=== PATIENT | male | born 1960 | race Caucasian/White ===

== ENCOUNTER 2024-01-12 15:52 | Observation (INO) | payer OTHER ==
[2024-01-12 16:33] LABS: #Basophils Less than 0.03 10x3/uL (0.0-0.2); %Basophils 0.2 % (0.0-1.0); %Eosinophils 0.7 % (0.0-10.0); %Lymphocytes 13.1 % (21.0-51.0); %Monocytes 7.6 % (0.0-10.0); Hematocrit 40.2 % (42.0-52.0); Hemoglobin 14.4 g/dL (14.0-18.0); Mean Corpuscular HGB CONC 35.8 g/dL (32.0-36.0); Mean Corpuscular Hemoglobin 36.7 pg (27.0-31.0); Mean Corpuscular Volume 102.6 fL (78.0-98.0); Mean Platelet Volume 9.3 fL (7.4-10.4); Platelet Count 205 10x3/uL (130-400); Red Blood Cell (RBC) Count 3.92 mill/uL (4.70-6.10)
[2024-01-12 16:53] LABS: ALT (SGPT) 15 U/L (8-55); AST (SGOT) 35 U/L (5-34); Albumin 3.9 g/dL (3.4-4.8); Alkaline Phosphatase 80 U/L (40-110); Anion Gap 22 mmol/L (10-20); BUN (Urea Nitrogen) 6 mg/dL (8.4-25.7); Bilirubin, Total 0.6 mg/dL (0.2-1.2); Calc. Creatinine Clearance 0 mL/min (70-130); Calcium 8.4 mg/dL (7.8-10.44); Carbon Dioxide 16 mmol/L (23-31); Chloride 102 mmol/L (98-107); Estimated GFR 97; Globulin 2.7 g/dL (2.4-3.5); Glucose 76 mg/dL (80-115); Potassium 3.6 mmol/L (3.5-5.1); Protein, Total 6.6 g/dL (5.8-8.1); Sodium 136 mmol/L (136-145)
[2024-01-12 16:57] LABS: Troponin I Less than 0.010 ng/mL (< 0.028)
[2024-01-12 17:20] LABS: Actual Bicarbonate (HCO3v) 17.6 mEq/L (22-28); Analyzer IN Cardio ER; Base Excess -6.5 mEq/L (-2.0 to +3.0); Calcium, Ionized (venous) 1.06 mmol/L (1.16-1.32); Chloride (VBG) 104 mmol/L (98-106); Hematocrit-VBG 45 % (42.0-52.0); Hemoglobin (Hb) 15.2 g/dL (13.1-17.2); Potassium (VBG) 3.54 mmol/L (3.70-5.30); Sodium 135 mmol/L (133-146); pH (venous) 7.362 (7.32-7.43)
[2024-01-12 17:39] LABS: CK (CPK) 437 U/L (30-200); Magnesium 2.2 mg/dL (1.6-2.6)
[2024-01-12 18:48] LABS: Bacteria/HPF None Seen HPF (None Seen); Bilirubin Negative (Negative); Blood, Urine 1+ (Negative); CAUTI Indications for Culture Immunosuppressed; Clarity Clear (Clear); Glucose, Urine (Dipstick) Normal (Negative); Ketone, Urine Negative (Negative); Leukocyte Negative Leu/uL (Negative); Nitrite Negative (Negative); Protein, Urine (Dipstick) Negative (Neg-Trace); RBC/HPF None Seen HPF (0-3); Squamous Epithelial None Seen HPF (0-3); Urobilinogen Normal mg/dL (Less than 2); WBC/HPF None Seen HPF (0-3)
[2024-01-12 18:50] LABS: Specific Gravity, Urine 1.003 (1.002-1.036)
[2024-01-12 18:51] LABS: Urine Culture Reflex No No; Urine Culture Reflex Yes Yes
[2024-01-12 19:14] LABS: Acetaminophen Less than 10 mcg/mL (Less than 10); Alcohol 232.9 mg/dL (Less than 10); Salicylate Less than 8.0 mg/dL (Less than 8.0)
[2024-01-12 19:20] LABS: Phosphorus 1.3 mg/dL (2.3-4.7)
[2024-01-12 19:39] LABS: Amphetamine Not Detected (NotDetected); Barbiturates Screen Not Detected (NotDetected); Benzodiazepine Screen Not Detected (NotDetected); Cocaine Metabolite Screen Not Detected (NotDetected); Methadone Not Detected (NotDetected); Methamphetamine Not Detected (NotDetected); Opiate Screen Not Detected (NotDetected); Oxycodone Screen Not Detected (NotDetected); Phencyclidine (PCP) Not Detected (NotDetected); THC/Cannabinoid Screen Detected (NotDetected); Tricyclic Screen Not Detected (NotDetected)
[2024-01-12 20:02] VITALS: BMI 17.2
[2024-01-12] MEDS ORDERED: Ondansetron ORAL SOLN. 4 MG/5 ML UDCUP PO PRN (20:04)
[2024-01-12] MEDS: Lactated Ringer's 1,000 ML IV SCH ×2 (20:27→20:38)
[2024-01-12 20:36] LABS: Lactic Acid 3.48 mmol/L (0.5-2.2)
[2024-01-12] MEDS: Folic Acid 1 MG TAB PO SCH (20:51)
[2024-01-12] MEDS: Thiamine 100 MG TAB PO SCH (20:51)
[2024-01-12] MEDS: Acetaminophen 325 MG TAB PO PRN (20:51)
[2024-01-12] MEDS: Nicotine 21 MG PATCH TD SCH (20:51)
[2024-01-12] MEDS: FLU (Fluarix Triv) TS24-25(6MOS UP)/PF 45 MCG/0.5 ML Syringe IM ONE (20:52)
[2024-01-13 04:50] LABS: #Basophils 0.03 10x3/uL (0.0-0.2); %Basophils 0.4 % (0.0-1.0); %Eosinophils 0.6 % (0.0-10.0); %Lymphocytes 16.9 % (21.0-51.0); %Neutrophils 70.8 % (42.0-75.0); Hematocrit 41.9 % (42.0-52.0); Hemoglobin 14.1 g/dL (14.0-18.0); Mean Corpuscular HGB CONC 33.7 g/dL (32.0-36.0); Mean Corpuscular Hemoglobin 36.4 pg (27.0-31.0); Mean Corpuscular Volume 108.3 fL (78.0-98.0); Mean Platelet Volume 9.4 fL (7.4-10.4); Platelet Count 187 10x3/uL (130-400); RBC Distribution Width 12.5 % (11.5-14.5); Red Blood Cell (RBC) Count 3.87 mill/uL (4.70-6.10)
[2024-01-13 05:08] LABS: Lactic Acid 1.23 mmol/L (0.5-2.2)
[2024-01-13 05:18] LABS: ALT (SGPT) 27 U/L (8-55); AST (SGOT) 89 U/L (5-34); Albumin 3.5 g/dL (3.4-4.8); Alkaline Phosphatase 89 U/L (40-110); Anion Gap 17 mmol/L (10-20); BUN (Urea Nitrogen) 7 mg/dL (8.4-25.7); Bilirubin, Total 1.2 mg/dL (0.2-1.2); Calc. Creatinine Clearance 79 mL/min (70-130); Calcium 8.2 mg/dL (7.8-10.44); Carbon Dioxide 18 mmol/L (23-31); Chloride 107 mmol/L (98-107); Estimated GFR 103; Globulin 2.7 g/dL (2.4-3.5); Glucose 51 mg/dL (80-115); Potassium 3.7 mmol/L (3.5-5.1); Protein, Total 6.2 g/dL (5.8-8.1); Sodium 138 mmol/L (136-145)
[2024-01-13] MEDS: PHOS-NAK 1 PKT PACK PO SCH (08:50)
[2024-01-13] MEDS ORDERED: Enoxaparin 40 MG (0.4 mL) SYRINGE SC SCH (09:00)
[2024-01-13 12:20] VITALS: TEMP 98.1
[2024-01-13 15:58] VITALS: BP 112/72
[2024-01-13 16:19] VITALS: BMI 17.2
== END 2024-01-13 17:48 | disposition home or self-care (01) ==
LOC: ERS 15:52 → T4-B 18:26 → INTOOBSV 18:26
PROVIDERS: ADMIT Student in an Organized Health Care Education/Training Program; ATTEND Student in an Organized Health Care Education/Training Program
DX: E87.20 Acidosis, unspecified (principal); S20.419A Abrasion of unspecified back wall of thorax, initial encounter; E86.0 Dehydration; I10 Essential (primary) hypertension; F10.229 Alcohol dependence with intoxication, unspecified; F17.210 Nicotine dependence, cigarettes, uncomplicated; F12.20 Cannabis dependence, uncomplicated; Z79.899 Other long term (current) drug therapy; W19.XXXA Unspecified fall, initial encounter
CPT/HCPCS: 36415; 36416; 70450; 71045; 72072; 80053; 80306; 80307; 81001; 82550; 82805; 83605; 83735; 83880; 84100; 84443; 84484; 85025; 87086; 93005; 96360; 96361; G0378; J7120